=== PATIENT | male | born 1985 | race Caucasian/White ===

== ENCOUNTER 2019-11-22 14:53 | Emergency (ER) | payer OTHER ==
[~2019-11-22] VITALS: Ht 157.5 cm; Wt 59.1 kg
[2019-11-22 16:00] VITALS: BP 142/87
== END 2019-11-22 16:30 | disposition home or self-care (01) ==
LOC: EMS 15:00
DX: Z20.828 Contact with and (suspected) exposure to other viral communicable diseases (principal)
CPT/HCPCS: 87635